=== PATIENT | female | born 1995 | race Caucasian/White ===

== ENCOUNTER 2017-03-06 19:16 | Inpatient (IN) | payer OTHER ==
[~2017-03-06] VITALS: Ht 152.4 cm; Wt 50.0 kg
[2017-03-06 20:38] LABS: BASOPHIL % 0.2 % (0-2); PLATELET COUNT 260 x10^3mcL (130-400); RED CELL DISTRIBUTION WIDTH 13.2 % (11.5-14.5)
[2017-03-06 20:54] LABS: UA SPECIFIC GRAVITY 1.025 (1.005-1.035); microscopic required? YES; urine erythrocyte 3+ (NEGATIVE)
[2017-03-06 21:58] LABS: CALCIUM 8.8 mg/dL (8.5-10.1); CHLORIDE SERUM 109 mmol/L (98-107); CREATININE SERUM 0.8 mg/dL (0.6-1.0); GFR1 > 60 mL/min; GLUCOSE SERUM 93 mg/dL (74-106); POTASSIUM SERUM 3.6 mmol/L (3.5-5.1); SODIUM SERUM 147 mmol/L (136-145)
[2017-03-06 23:08] VITALS: BP 145/52
[2017-03-06 23:15] VITALS: Ht 152.4 cm; Wt 50.0 kg
[2017-03-06 23:52] LABS: MAGNESIUM 2.3 mg/dL (1.8-2.4); PHOSPHOROUS 3.4 mg/dL (2.5-4.9)
[2017-03-06 23:53] LABS: CHOLESTEROL/HDL RATIO 2.1
[2017-03-06 23:55] LABS: FREE T4 1.03 ng/dL (0.76-1.46); FREE THYROXINE INDEX 3.3 ug/dL (1.4-4.5); T4(THYROXINE) 10.7 ug/dL (4.7-13.3)
[2017-03-07 00:37] LABS: T3 TOTAL 1.25 ng/mL
[2017-03-07 02:17] LABS: AMPHETAMINE QUAL UR NONE DETECTED (NEG <=1000)
[2017-03-07 06:04] LABS: BASOPHIL % 0.5 % (0-2); PLATELET COUNT 185 x10^3mcL (130-400); RED CELL DISTRIBUTION WIDTH 13.3 % (11.5-14.5)
[2017-03-07 06:20] LABS: CALCIUM 8.1 mg/dL (8.5-10.1); CARBON DIOXIDE 25.3 mmol/L (21-32); CHLORIDE SERUM 110 mmol/L (98-107); CREATININE SERUM 0.7 mg/dL (0.6-1.0); GFR1 > 60 mL/min; GLUCOSE SERUM 94 mg/dL (74-106); POTASSIUM SERUM 3.8 mmol/L (3.5-5.1); SODIUM SERUM 142 mmol/L (136-145)
[2017-03-07 06:48] VITALS: BP 91/48
[2017-03-07 06:50] VITALS: BP 91/47
[2017-03-07 08:30] VITALS: BP 99/61
[2017-03-07 17:52] VITALS: BP 97/56
[2017-03-07 19:01] LABS: BASOPHIL % 0.5 % (0-2); PLATELET COUNT 208 x10^3mcL (130-400); RED CELL DISTRIBUTION WIDTH 12.8 % (11.5-14.5)
[2017-03-07 21:18] VITALS: BP 104/65
== END 2017-03-07 21:40 | disposition left against medical advice (07) | DRG 564 ==
LOC: ED 19:16 → DU 21:44 → MU 03-07 11:40
PROVIDERS: Emergency Medicine; ADMIT Family Medicine
DX: O03.4 Incomplete spontaneous abortion without complication (principal); N17.0 Acute kidney failure with tubular necrosis; E87.0 Hyperosmolality and hypernatremia; E87.8 Other disorders of electrolyte and fluid balance, not elsewhere classified; D50.0 Iron deficiency anemia secondary to blood loss (chronic); E83.51 Hypocalcemia; N80.9 Endometriosis, unspecified
CPT/HCPCS: 83880; 84439; J0295; J2270; J2405; J3490; J7030; Q0092

== ENCOUNTER 2019-10-30 09:08 | Emergency (ER) | payer OTHER ==
[~2019-10-30] VITALS: Ht 157.5 cm; Wt 52.2 kg
[2019-10-30 09:14] VITALS: Ht 157.5 cm; Wt 52.2 kg
[2019-10-30 09:53] LABS: BASOPHIL % 0.4 % (0-2); PLATELET COUNT 222 x10^3mcL (130-400); RED CELL DISTRIBUTION WIDTH 12.2 % (11.5-14.5)
[2019-10-30 10:32] LABS: CARBON DIOXIDE 30.2 mmol/L (21-32); CHLORIDE SERUM 104 mmol/L (98-107); CREATININE SERUM 0.8 mg/dL (0.6-1.0); GFR1 > 60 mL/min; GLUCOSE SERUM 70 mg/dL (74-106); POTASSIUM SERUM 4.2 mmol/L (3.5-5.1); SODIUM SERUM 140 mmol/L (136-145)
[2019-10-30 10:36] LABS: ALBUMIN 4.4 g/dL (3.4-5.0); ALKALINE PHOSPHATASE 71 U/L (46-116); ALT/SGPT 21 U/L (14-59); AST/SGOT 16 U/L (15-37); BILIRUBIN TOTAL 1.2 mg/dL (0.20-1.00); LIPASE 80 IU/L (73-393); TOTAL PROTEIN, SERUM 7.7 g/dL (6.4-8.2)
[2019-10-30 11:32] VITALS: BP 130/70
== END 2019-10-30 11:32 | disposition home or self-care (01) ==
LOC: ED 09:08
PROVIDERS: Emergency Medicine
DX: K80.20 Calculus of gallbladder without cholecystitis without obstruction (principal); Z98.890 Other specified postprocedural states
CPT/HCPCS: J1885; J2405; J7030

== ENCOUNTER 2019-12-15 14:08 | Emergency (ER) | payer OTHER ==
[~2019-12-15] VITALS: Ht 152.4 cm; Wt 53.5 kg
[2019-12-15 14:16] VITALS: BP 104/52; Ht 152.4 cm; Wt 53.5 kg
== END 2019-12-15 14:55 | disposition home or self-care (01) ==
LOC: ED 14:08
DX: R21 Rash and other nonspecific skin eruption (principal)

== ENCOUNTER 2020-10-25 21:23 | Emergency (ER) | payer OTHER ==
[~2020-10-25] VITALS: Ht 160 cm; Wt 56.7 kg
[2020-10-25 21:32] VITALS: Ht 160 cm; Wt 56.7 kg
[2020-10-25 22:20] LABS: BASOPHIL % 0.6 % (0.2-1.3); PLATELET COUNT 254 x10^3mcL (179-408); RED CELL DISTRIBUTION WIDTH 12.6 % (12.3-17.7)
[2020-10-25 22:23] LABS: CALCIUM 9.3 mg/dL (8.5-10.1); CARBON DIOXIDE 23.7 mmol/L (21-32); CHLORIDE SERUM 107 mmol/L (98-107); CREATININE SERUM 0.8 mg/dL (0.6-1.0); GFR1 > 60 mL/min; GLUCOSE SERUM 104 mg/dL (74-106); POTASSIUM SERUM 3.9 mmol/L (3.5-5.1); SODIUM SERUM 142 mmol/L (136-145)
[2020-10-25 22:27] LABS: ALBUMIN 4.3 g/dL (3.4-5.0); ALKALINE PHOSPHATASE 112 U/L (46-116); ALT/SGPT 19 U/L (14-59); AST/SGOT 23 U/L (15-37); BILIRUBIN TOTAL 0.27 mg/dL (0.20-1.00); TOTAL PROTEIN, SERUM 7.8 g/dL (6.4-8.2)
[2020-10-25 23:06] LABS: UA SPECIFIC GRAVITY 1.015 (1.005-1.035); microscopic required? YES; urine erythrocyte 1+ (NEGATIVE)
[2020-10-25 23:32] LABS: AMPHETAMINE QUAL UR NONE DETECTED (See below)
[2020-10-26 00:08] VITALS: BP 105/65
== END 2020-10-26 01:29 | disposition home or self-care (01) ==
LOC: ED 21:23
PROVIDERS: Emergency Medicine
DX: R41.82 Altered mental status, unspecified (principal); F12.10 Cannabis abuse, uncomplicated; F10.129 Alcohol abuse with intoxication, unspecified; F41.9 Anxiety disorder, unspecified; Z98.890 Other specified postprocedural states
CPT/HCPCS: G0480; J2405; J7030